=== PATIENT | male | born 1980 | race Two or more races ===

== ENCOUNTER 2020-02-25 10:37 | Emergency (ER) | payer BC ==
[2020-02-25 10:42] VITALS: BP 126/76
[2020-02-25] MEDS ORDERED: KETOROLAC TROMETHAMINE 60 MG/2 ML SDV IM ONE (10:51)
[2020-02-25] MEDS ORDERED: PREDNISONE 20 MG TABLET PO ONE (10:51)
--- NOTE | 2020-02-25 10:52 | ER Document Report ---
ED Neck/Back Problem - General Chief Complaint: Back Pain Stated Complaint: LOWER BACK PAIN Time Seen by Provider: 02/25/20 10:51 Primary Care Provider: KALEY GAUTHIER DO [ACTIVE STAFF] - Follow up as needed Notes: CHIEF COMPLAINT: Left lower back pain for 2 weeks HPI: 39-year-old male presenting to the emergency department complaining of left lower back pain with some radiation into the left leg for the last 2 weeks occasional numbness tingling no incontinence of urine or bowel has had this multiple times before states he normally gets Toradol and steroids. Does not have an orthopedist for follow-up. Patient also indicates he was diagnosed Covid positive on February 18. ROS: See HPI - all other systems were reviewed and are otherwise negative Constitutional: no fever Eyes: no drainage, no blurred vision ENT: no runny nose, no sore throat Cardiovascular: no chest pain Resp: no SOB, no cough GI: no vomiting, no diarrhea, no abdominal pain : no dysuria Integumentary: no rash Allergy: no hives Musculoskeletal: no extremity pain or swelling, positive back pain Neurological: Intermittent numbness/tingling, no weakness MEDICATIONS: I agree with the patient medications as charted by the RN. ALLERGIES: I agree with the allergies as charted by the RN. PAST MEDICAL HISTORY/PAST SURGICAL HISTORY: Reviewed and agree as charted by RN. SOCIAL HISTORY: Reviewed and agree as charted by RN. FAMILY HISTORY: No significant familial comorbid conditions directly related to patient complaint EXAM: Reviewed vital signs as charted by RN. CONSTITUTIONAL: Alert and oriented and responds appropriately to questions. Well-appearing; well-nourished HEAD: Normocephalic; atraumatic EYES: Conjunctivae clear, sclerae non-icteric ENT: normal nose; no rhinorrhea; moist mucous membranes NECK: Supple without meningismus; non-tender; no cervical lymphadenopathy, no masses CARD: symmetric distal pulses RESP: Normal chest excursion without splinting or tachypnea ABD/GI: Normal bowel sounds; non-distended; soft, non-tender, no rebound, no guarding; no palpable organomegaly or masses. BACK: The back appears normal and is non-tender to palpation directly over the lumbar spine there is mild left lateral lumbar muscular tenderness on palpation in the upper left gluteal region, there is no CVA tenderness EXT: Normal ROM in all joints; non-tender to palpation; no cyanosis, no effusions, no edema SKIN: Normal color for age and race; warm; dry; good turgor; no acute lesions noted NEURO: Moves all extremities equally; Motor and sensory function intact. Strength equal 5/5 bilateral lower extremities. Sensation intact and equal bilateral lower extremities. Straight leg raise is negative. No saddle anesthesia on exam. DTRs 2+ intact and equal bilateral lower extremities. PSYCH: The patient's mood and manner are appropriate. Grooming and personal hygiene are appropriate. MDM: 39-year-old male with sciatic symptoms. Will treat with steroids and antiinflammatories. Refer to orthopedics. No perineal numbness suggesting cauda equina The patient was evaluated during the global COVID-19 pandemic and that diagnosis was suspected/considered upon their initial presentation. Their evaluation, treatment and testing was consistent with current guidelines for patients who present with complaints or symptoms that may be related to COVID-19 - Related Data Allergies/Adverse Reactions: No Known Allergies Allergy (Unverified 02/25/20 10:43) Past Medical History - Social History Smoking Status: Never Smoker Chew tobacco use (# tins/day): No Frequency of alcohol use: None Drug Abuse: None Family History: Reviewed & Not Pertinent Physical Exam - Vital signs Vitals: Temp Pulse Resp BP Pulse Ox 97.9 F 72 16 126/76 H 99 02/25/20 10:41 02/25/20 10:41 02/25/20 10:41 02/25/20 10:41 02/25/20 10:41 Course - Vital Signs Vital signs: Temp Pulse Resp BP Pulse Ox 97.9 F 72 16 126/76 H 99 02/25/20 10:41 02/25/20 10:41 02/25/20 10:41 02/25/20 10:41 02/25/20 10:41 - Laboratory Results Critical Laboratory Results Reviewed: No Critical Results - Radiology Results Critical Radiology Results Reviewed: No Critical Results Discharge - Discharge Clinical Impression: Sciatica, left side Condition: Stable Disposition: HOME, SELF-CARE Additional Instructions: 1. Warm heat to the lower back twice daily 2. no heavy lifting for 2-3 days 3. medications as prescribed 4. follow up with orthopedics for further evaluation and treatment as needed for any continuing pain or problems, call for appt. 5. return to the ER for any onset of incontinence of urine, fever > 101 or worsening condition 6. Make sure that you continue to self quarantine at home for the full 10 days from time of your initial diagnosis and make sure that if you have to go to a medical provider you informed them that you were Covid positive so they may take proper precautions Prescriptions: Prednisone [Deltasone 20 mg Tablet] 2 tab PO DAILY 5 Days #10 tablet Diclofenac Sodium [Voltaren 50 Mg Tablet.] 50 mg PO BID #20 tablet. Referrals: KALEY GAUTHIER DO [ACTIVE STAFF] - Follow up as needed
== END 2020-02-25 10:58 | disposition home or self-care (01) ==
LOC: ER 10:37
DX: M54.42 Lumbago with sciatica, left side (principal); U07.1 COVID-19
CPT/HCPCS: 99284; 96372; J1885; J7512